=== PATIENT | male | born 1980 | race African-American/Black ===

== ENCOUNTER 2017-09-12 09:48 | Emergency (ER) | payer OTHER ==
[~2017-09-12] VITALS: Ht 175.3 cm; Wt 72.6 kg
--- NOTE | ~2017-09-12 | EKG ---
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
[2017-09-12 10:21] LABS: URINE BILIRUBIN NEGATIVE (Negative); URINE BLOOD 1+ (Negative); URINE CLARITY CLEAR; URINE COLOR YELLOW; URINE GLUCOSE-RANDOM* NEGATIVE (Negative); URINE KETONES NEGATIVE (Negative); URINE LEUKOCYTES NEGATIVE (Negative); URINE NITRITE NEGATIVE (Negative); URINE PROTEIN (DIPSTICK) NEGATIVE (Negative); URINE SPECIFIC GRAVITY 1.025 (1.005-1.035); URINE UROBILINOGEN 0.2 E.U./dl (0.2-1.0)
[2017-09-12 10:26] LABS: ABSOLUTE NEUTROPHILS 2.3 thou/uL (1.4-8.2); BASOPHILS 0.4 % (0.0-2.0); EOSINOPHILS 4.3 % (0.0-3.0); HEMOGLOBIN 13.3 gm/dL (14.0-18.0); LYMPHOCYTES 36.9 % (24.0-44.0); MCH 30.3 pg (26.0-34.0); MCHC 35.1 g/dL (28.0-37.0); MCV 86.4 fL (80.0-100.0); MONOCYTES 10.6 % (1.0-8.0); PLATELET COUNT 236 thou/uL (150-400); POLYS 47.8 % (36.0-66.0); RDW 13.4 % (10.5-14.5); WBC 4.7 thou/uL (4.0-11.0)
[2017-09-12 10:39] LABS: CALCIUM 9.2 mg/dL (8.5-10.1); CREATININE 0.9 mg/dL (0.7-1.3); POTASSIUM 3.8 mmol/L (3.5-5.1)
[2017-09-12 11:11] LABS: SQUAMOUS None Seen /LPF (0-3)
[2017-09-12 11:12] LABS: BACTERIA 1-9 Few /HPF (None Seen); CASTS None Seen /LPF (None Seen); CRYSTALS None Seen /LPF (None Seen); MUCUS 4-6 Moderate strn/LPF (None Seen); URINE RBC 0-2 Rare /HPF (0-2); URINE WBC 0-5 Rare /HPF (0-5)
[2017-09-12] MEDS ORDERED: IBUPROFEN 600600 M1 PO (11:12)
== END 2017-09-12 11:28 | disposition home or self-care (01) ==
LOC: ER 09:48
PROVIDERS: Nurse Practitioner
DX: R06.00 Dyspnea, unspecified (principal)